=== PATIENT | female | born 1990 | race Caucasian/White ===

== ENCOUNTER 2016-10-11 17:21 | Emergency (ER) | payer OTHER, MEDICAID ==
[~2016-10-11] VITALS: Ht 160 cm; Wt 75.0 kg
[~2016-10-11 17:21] MED LIST: ENOX80P SQ; OXYC1SOL5 PO
[2016-10-11 17:23] VITALS: BP 123/81; PULSE 119; RESP 18; TEMP 97.8; O2SAT 99
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
[2016-10-11] MEDS ORDERED: SODIUM CHLORIDE 0.9% FLUSH 10 ML FLUSH IVF PRN (19:00)
[2016-10-11] MEDS ORDERED: SODIUM CHLOR 0.9% 1000 ML INJ 1,000 ML IV ONE ×2 (19:00→21:30)
[2016-10-11 19:01] VITALS: O2SAT 96
[2016-10-11 19:34] LABS: AUTOMATED NEUTROPHIL # 5.9 TH/MM3 (1.8-7.7); BASOPHIL # 0.1 TH/MM3 (0-0.2); BASOPHIL % 0.6 % (0.0-2.0); EOSINOPHIL # 0.1 TH/MM3 (0-0.4); EOSINOPHIL % 1.2 % (0.0-4.0); HEMATOCRIT 41.8 % (35.0-46.0); HEMO FLAGS DIFF FINAL; LYMPH % 18.6 % (9.0-44.0); LYMPHOCYTE # 1.6 TH/MM3 (1.0-4.8); MEAN CELL VOLUME 83.3 FL (80.0-100.0); MEAN CORPUSCULAR HGB CONC 34.8 % (32.0-36.0); MONO % 8.5 % (0.0-8.0); NEUT % 71.1 % (16.0-70.0); PLATELET COUNT 203 TH/MM3 (150-450); RED BLOOD COUNT 5.02 MIL/MM3 (4.00-5.30); WHITE BLOOD COUNT 8.3 TH/MM3 (4.0-11.0)
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
[2016-10-11 19:43] LABS: APTT (PATIENT) 30.2 SEC (24.3-30.1); PROTHROMBIN TIME - PATIENT 11.4 SEC (9.8-11.6)
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
[2016-10-11 19:58] LABS: BICARBONATE 29.2 MEQ/L (21.0-32.0); POTASSIUM 3.1 MEQ/L (3.5-5.1)
[2016-10-11 20:40] VITALS: BP 123/79; PULSE 103; RESP 16; O2SAT 98
[2016-10-11] MEDS ORDERED: IOHEXOL 350 MG/ML 10 ML VIAL (for RAD DIAG) IV ONE (20:55)
[2016-10-11 20:59] LABS: BACTERIA, URINE MANY /hpf; BLOOD, URINE TRACE (NEG); COMMENT (UR) CULTURE INDICATED; CULTURE IF INDICATED CULTURE INDICATED; GLUCOSE,URINE NEG (NEG); KETONE, URINE 10 mg/dL (NEG); MUCUS URINE MANY /lpf (OCC); NITRITE,URINE NEG (NEG); SQUAMOUS EPITHELIAL CELL URINE <1 /hpf (0-5); URINE COLOR YELLOW (YELLW/STRAW)
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
[2016-10-11] MEDS ORDERED: KETOROLAC TROMETHAMINE 30 MG/ML (IVP) VIAL IV PUSH ONE (21:30)
[2016-10-11] MEDS ORDERED: cefTRIAXone INJ 1,000 MG in SODIUM CHLORIDE 0.9% INJ 100 ML IV ONE (21:30)
[2016-10-11] MEDS ORDERED: IBUP800T23 PO (21:36)
[2016-10-11] MEDS ORDERED: HYDR-3533 PO (21:37)
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
== END 2016-10-11 23:05 | disposition home or self-care (01) ==
LOC: NEPC 17:21
DX: S06.9X9A Unspecified intracranial injury with loss of consciousness of unspecified duration, initial encounter (principal); S92.321A Displaced fracture of second metatarsal bone, right foot, initial encounter for closed fracture; S92.332A Displaced fracture of third metatarsal bone, left foot, initial encounter for closed fracture; S90.32XA Contusion of left foot, initial encounter; S92.342A Displaced fracture of fourth metatarsal bone, left foot, initial encounter for closed fracture; T14.8 Other injury of unspecified body region; R11.2 Nausea with vomiting, unspecified; R56.9 Unspecified convulsions; V49.59XA Passenger injured in collision with other motor vehicles in traffic accident, initial encounter; Y92.410 Unspecified street and highway as the place of occurrence of the external cause; Z72.0 Tobacco use; Z79.01 Long term (current) use of anticoagulants; B96.1 Klebsiella pneumoniae [K. pneumoniae] as the cause of diseases classified elsewhere; E87.6 Hypokalemia; R80.9 Proteinuria, unspecified
CPT/HCPCS: 70450; 71010; 71260; 73630; 74177; 80048; 81001; 84703; 85025; 85610; 85730; 87077; 87086; 87186; 96361; 96374; 99284; J0696; J1885; J7030; Q9967